=== PATIENT | female | born 1955 | race Caucasian/White ===

== ENCOUNTER 2022-08-10 05:55 | Day surgery (SDC) | payer MEDICARE, BC ==
[~2022-08-10] VITALS: Ht 152.4 cm; Wt 70.5 kg
[~2022-08-10 05:55] MED LIST: COZAAR100 MG PO; DICLOFENAC POTA50 MG PO; DYMISTA NASAL S23 GM NAS; HYDROCHLOROTH12.5 MG PO; IBUPROFEN800 MG PO; PROTONIX20 MG PO; SINGULAIR10 MG PO; SYNTHROID100 MCG PO; VENTOLIN HFA18 GM INH
--- NOTE | 2022-08-10 07:46 | NUR ---
VISITED WITH PT PRIOR TO PROCEDURE. PT SHARED THE CHALLENGES OF THE PREP THE DAY BEFORE. PT WAS IN GOOD SPIRITS AND EXPRESSED LOOKING FORWARD TO PROCEDURE BEING OVER. PT SHARED ANXIETY OF PARTNER WHO WAS WAITING IN THE CAR. PRAYED WITH PT.
--- NOTE | 2022-08-10 07:51 | NUR ---
VISITED WITH PT PRIOR TO PROCEDURE. WAS WITH PT. PT SHARED CHALLENGES OF PROCEDURE PREP AND HUSBANDS SUPPORT IN THE PROCESS. SHARED HE WAS STAYING ON CAMPUS DURING PROCEDURE. PRAYED WITH PT AND .
--- NOTE | 2022-08-10 08:34 | NUR ---
08/10/22 0834 Sallie Kirby 0808-PATIENT ARRIVED TO PACU ON 4L NC LAYING LEFT LATERAL. SR. IVF INFUISNG. ABDOMEN SOFT. PATIENT REACTIVE TO VERBAL STIMULI SLIGHTLY OPENING EYES. BP RECHECKED ON ARM.
--- NOTE | 2022-08-11 06:49 | OR ---
[facility] [address], [place] [address] Signed DATE OF OPERATION: 08/10/2022 SURGEON: Ifeanyi Yeh MD PREOPERATIVE DIAGNOSES: 1. Hiatal hernia. 2. Esophagitis. 3. Gastroesophageal reflux disease. 4. Irritable bowel syndrome with diarrhea. 5. Father with colonic polyps. 6. Personal history of colonic polyps. POSTOPERATIVE DIAGNOSES: 1. GE junction at 35 cm. 2. Small hiatal hernia. 3. Superficial diffuse gastritis. 4. Moderate internal and external hemorrhoids. 5. 5 mm polyps at 18 cm, proximal right colon, 65 cm and 6 cm. 6. Long redundant colon. PROCEDURES: 1. EGD with CLOtest and biopsies of the antrum. 2. Colonoscopy with hot biopsy. INDICATIONS: Madina is a 67-year-old female, asked to see me for upper and lower endoscopy. She has a long history of irritable bowel syndrome with diarrhea. She had her gallbladder out in 2014. She continues to smoke and has COPD. She said her father had colonic polyps. She remembers upper and lower endoscopy in 2009 with Jorge at the [facility] in [place], [place]. She had a hiatal hernia with significant esophagitis but no Rivas's mucosa. She had a followup upper and lower endoscopy in [address] Mike Veras at [facility] in [place], [place]. She had a small colonic polyp removed from her sigmoid colon. We do not have the pathology report. Her esophagus was markedly improved with her proton pump inhibitor. She was asked to follow up in 5 years for repeat colonoscopy. She delayed the colonoscopy due to the COVID pandemic. She has now moved to [place], [place] to be closer to her family. She has been asked to see me for repeat upper and lower endoscopy. She told me she woke up twice during surgeries and both were terrible experiences. Based on that and her COPD, she is a good candidate for monitored anesthesia care with propofol. In the office, I gave her pamphlets on both upper and Electronically Signed By: IFEANYI YEH MD 08/11/22 0649 PATIENT NAME: MADINA BALDWIN OPERATIVE REPORT DATE OF : 59 REPORT #: [id number] PHYSICIAN: IFEANYI YEH MD PCP: EUNICE CROUCH MD REPORT IS CONFIDENTIAL AND NOT TO BE RELEASED WITHOUT AUTHORIZATION [facility] [address], [place] [address] Signed lower endoscopy. We had reviewed the nature of the two tests. She understands there is risk including, but not limited to gas bloating, crampy abdominal pain, bleeding, perforation requiring surgery, and missed diagnosis. We also reviewed the need for the monitored anesthesia care. She felt strongly that was an important tissue as well. She had expressed understanding and wished to proceed. PROCEDURE NOTE: Madina was taken into our endoscopy suite and placed in a supine semi-recumbent position. A bite block was utilized for the case. She was given monitored anesthesia care with propofol per our nurse stamping machine operator. The adult gastroscope had been introduced and advanced out into the third portion the duodenum. The duodenum and pyloric channel were unremarkable. She has mild diffuse superficial erythematous changes throughout the stomach consistent with gastritis. We took a biopsy of the antrum for CLOtest as well as pathologic review. She had phlegm and was gagging quite a bit during the procedure from her history of smoking. She did have frequent suctioning and attention from our anesthesia provider. We can see she has a small hiatal hernia. It was difficult to measure that due to her coughing. It was probably 3 cm at most in length. Her Z-line is right around 35 cm. There was no Rivas's mucosa. Really minimal if any disruption to the Z-line itself. No distal esophagitis. The middle and upper esophagus were unremarkable. After this, the gas was suctioned out and the gastroscope removed. Overall, Madina tolerated the upper endoscopy well. Madina was rotated into the left lateral decubitus position. She was maintained on IV propofol with our nurse stamping machine operator. A digital rectal exam was performed. She does have moderate circumferential external hemorrhoids. She had good sphincter tone. There were no masses. The adult colonoscope was introduced and advanced all around into the cecum under direct visualization of the camera. It took extra propofol and abdominal compression in order to advance the scope. Her heart rate dropped several times and we had to pause to allow her to recover. She has a very long redundant colon. Based on that finding alone, she would need monitored anesthesia care in the future. Her prep was quite excellent. We could easily see the appendiceal orifice and ileocecal valve. The scope was then slowly withdrawn. We took pictures throughout for photodocumentation. The above-mentioned polyps were easily removed with the help of hot biopsy forceps. There were no visible diverticula. Once in the rectum, the scope had been retroflexed and she does have moderate internal hemorrhoid columns as well. After this, the gas was suctioned out and the colonoscope removed. Overall, Madina tolerated the procedure well. RECOMMENDATIONS: I will see Madina in my office in 1 to 2 weeks for followup. She should always have monitored anesthesia care in the future. Electronically Signed By: IFEANYI YEH MD 08/11/22 0649 PATIENT NAME: MADINA BALDWIN OPERATIVE REPORT DATE OF : 59 REPORT #: [id number] PHYSICIAN: IFEANYI YEH MD PCP: EUNICE CROUCH MD REPORT IS CONFIDENTIAL AND NOT TO BE RELEASED WITHOUT AUTHORIZATION [address] [address] Signed MD MATT Dalton/ALEEL /[id number] cc: MD Dr. Eunice Dalton Copies: IFEANYI YEH MD ~ Electronically Signed By: IFEANYI YEH MD 08/11/22 0649 PATIENT NAME: MADINA BALDWIN OPERATIVE REPORT DATE OF : 59 REPORT #: [id number] PHYSICIAN: IFEANYI YEH MD PCP: EUNICE CROUCH MD REPORT IS CONFIDENTIAL AND NOT TO BE RELEASED WITHOUT AUTHORIZATION
--- NOTE | 2022-08-12 09:41 | PATH ---
[facility] [address] [place], [place] [address] Signed SPECIMEN(S): A ANTRUM BIOPSY SPECIMEN(S): B SIGMOID POLYP AT 18 CM SPECIMEN(S): C PROXIMAL ASCENDING/RIGHT COLON POLYP SPECIMEN(S): D DESCENDING/LEFT COLON POLYP AT 65 CM SPECIMEN(S): E RECTAL POLYP AT 6 CM SPECIMEN SOURCE: A. ANTRUM BIOPSY B. SIGMOID POLYP AT 18 CM C. PROXIMAL ASCENDING/RIGHT COLON POLYP D. DESCENDING/LEFT COLON POLYP AT 65 CM E. RECTAL POLYP AT 6 CM CLINICAL HISTORY: Personal history of colon polyps. Diaphragmatic hernia, acid reflux, IBS. Post-op DX: Gastritis, internal/external hemorrhoids, hiatal hernia. Esophagogastroduodenoscopy, colonoscopy. FINAL PATHOLOGIC DIAGNOSIS: A. Antrum, biopsy: - No significant histopathologic alterations. B. Colon, sigmoid, 18 cm, polypectomy: - Hyperplastic polyp. - There is no evidence of dysplasia or malignancy. C. Colon, proximal ascending/right, polypectomy: - Multiple fragments of tubular adenoma. - There is no evidence of high-grade dysplasia or malignancy. D. Colon, descending/left, 65 cm, polypectomy: - Hyperplastic polyp. - There is no evidence of dysplasia or malignancy. E. Rectum, 6 cm, polypectomy: - Hyperplastic polyp. - There is no evidence of dysplasia or malignancy. COMMENT: Regarding specimen A, the sections through the gastric biopsies show fragments of histologically unremarkable antral mucosa. There is no evidence of acute or chronic inflammation. There is no evidence of H. pylori, intestinal metaplasia, abnormal infiltrates or neoplasia. DENISE:deepak:C2NR PATIENT NAME: LOUIE BALDWIN PATHOLOGY DATE OF : 59 REPORT #: [id number] PHYSICIAN: NORMA HERRERA PCP: URSZULA CROUCH MD REPORT IS CONFIDENTIAL AND NOT TO BE RELEASED WITHOUT AUTHORIZATION [facility] [address] [place], [place] [address] Signed MICROSCOPIC EXAMINATION: Histologic sections of all submitted blocks are examined by light microscopy. These findings, together with the gross examination, support the pathologic diagnosis. GROSS DESCRIPTION: Five specimens are received in five containers, labeled "BW". A. The specimen, labeled "BW #1," is received in formalin and consists of one duran soft tissue fragment that measures 0.3 cm in greatest dimension. The specimen is entirely submitted in cassette (A1). B. The specimen, labeled "BW #2," is received in formalin and consists of one duran soft tissue fragment that measures 0.2 cm in greatest dimension. The specimen is entirely submitted in cassette (B1). C. The specimen, labeled "BW #3," is received in formalin and consists of two duran soft tissue fragments that measure 0.2 cm in greatest dimension. The specimen is entirely submitted in cassette (C1). D. The specimen, labeled "BW #4," is received in formalin and consists of one duran soft tissue fragment that measures 0.2 cm in greatest dimension. The specimen is entirely submitted in cassette (D1). E. The specimen, labeled "BW #5," is received in formalin and consists of one duran soft tissue fragment that measures 0.2 cm in greatest dimension. The specimen is entirely submitted in cassette (E1). KV (under the direct supervision of a pathologist) The Gross Description was prepared using a voice recognition system. The report was reviewed for accuracy; however, sound-alike word errors, addition and/or deletions may occur. If there is any question about this report, please contact Client Services. PERFORMING LABORATORY: The technical component was performed by [facility], [address] [place] [address] [place] [address] (CLIA# [id number]). The professional interpretation was performed by [facility], [facility], [address] [place] [address] (CLIA#: [id number]). Diagnostician: Kevon Aldrich MD Pathologist Electronically Signed 08/12/2022 PATIENT NAME: LOUIE BALDWIN PATHOLOGY DATE OF : 59 REPORT #: [id number] PHYSICIAN: NORMA HERRERA PCP: URSZULA CROUCH MD REPORT IS CONFIDENTIAL AND NOT TO BE RELEASED WITHOUT AUTHORIZATION [address] [address] Signed Copies: ~ PATIENT NAME: LOUIE BALDWIN PATHOLOGY DATE OF : 59 REPORT #: [id number] PHYSICIAN: NORMA HERRERA PCP: URSZULA CROUCH MD REPORT IS CONFIDENTIAL AND NOT TO BE RELEASED WITHOUT AUTHORIZATION
== END 2022-08-10 09:38 | disposition home or self-care (01) ==
LOC: OPS 05:55 → DS 05:55 → OPS 09:00 → DS 09:00 → OPS 09:38
PROVIDERS: ATTEND Colon & Rectal Surgery
PROC: 0DBN8ZZ Excision of Sigmoid Colon, Via Natural or Artificial Opening Endoscopic (ICD-10-PCS; 2022-08-10)
PROC: 0DBP8ZZ Excision of Rectum, Via Natural or Artificial Opening Endoscopic (ICD-10-PCS; 2022-08-10)
PROC: 0DB68ZX Excision of Stomach, Via Natural or Artificial Opening Endoscopic, Diagnostic (ICD-10-PCS; principal; 2022-08-10 07:30)
PROC: 0DBM8ZZ Excision of Descending Colon, Via Natural or Artificial Opening Endoscopic (ICD-10-PCS; 2022-08-10 07:30)
DX: K44.9 Diaphragmatic hernia without obstruction or gangrene (principal); K21.00 Gastro-esophageal reflux disease with esophagitis, without bleeding; K58.0 Irritable bowel syndrome with diarrhea; Z83.71 Family history of colonic polyps; Z86.010 Personal history of colon polyps; K64.4 Residual hemorrhoidal skin tags; K64.8 Other hemorrhoids; K29.70 Gastritis, unspecified, without bleeding; D12.2 Benign neoplasm of ascending colon; K62.1 Rectal polyp; Z80.0 Family history of malignant neoplasm of digestive organs; J44.9 Chronic obstructive pulmonary disease, unspecified
CPT/HCPCS: 36415; 87077; 88305; J0461; J0690; J2250; J2370; J2405; J2704; J7121